=== PATIENT | male | born 1940 | race African-American/Black ===

== ENCOUNTER 2018-03-26 09:30 | Observation (INO) ==
[2018-03-26] MEDS ORDERED: methylPREDNISolone SOD SUC 125 MG/2 ML VIAL IV STA (09:47)
[2018-03-26] MEDS ORDERED: ONDANSETRON 4 MG/2 ML VIAL IV STA (09:47)
[2018-03-26] MEDS ORDERED: ALBUTEROL/IPRATROPIUM 3 ML NEB RESP TX STA (09:47)
[2018-03-26] MEDS ORDERED: METOCLOPRAMIDE 10 MG/2 ML VIAL IV STA (09:47)
[2018-03-26] MEDS ORDERED: AZITHROMYCIN INJ 500 MG in SODIUM CHLORIDE 0.9% 250 ML IV STA (09:47)
[2018-03-26 10:19] LABS: Basophils % 0.2 % (0.0-0.8); Hematocrit 44.3 VOL% (42.0-52.0); Hemoglobin 15.1 GM/DL (14.0-18.0); Immature Granulocytes % 0.6 %; Immature Granulocytes Absolute 0.06 #; Lymphocytes # 0.3 10*3/uL (1.4-4.0); Lymphocytes % 3.1 % (21.2-54.2); Mean Corpuscular HGB Conc 34.1 GM/DL (32-36); Mean Corpuscular Hemoglobin 30 PG (27-34); Mean Corpuscular Volume 87.4 FL (87-102); Mean Platelet Volume 10.6 FL (9.6-12.0); Monocytes # 0.7 10*3/uL (0.11-0.8); Monocytes % 7.2 % (1.7-12.7); Neutrophils # 8.9 10*3/uL (1.4-7.4); Neutrophils % 88.9 % (38.7-73.9); Platelet Count 172 T/CUMM (130-400); Red Blood Count 5.07 MC/CUMM (3.8-5.5); Red Cell Distribution Width 12.8 % (9.3-17.3)
[2018-03-26 10:32] LABS: INR 1.1; Partial Thromboplastin Time 26.6 SECS (0-40)
[2018-03-26 10:42] LABS: Lymphocytes 4 % (20-55); Metamyelocytes 1 %; Microcytosis Slight; Platelet Estimate Adequate; Segmented Neutrophils 88 % (50-85); Total Cells Counted 100
[2018-03-26 10:45] LABS: Alanine Aminotransferase 26 U/L (16-61); Albumin 3.7 G/DL (3.4-5.0); Alkaline Phosphatase 95 U/L (45-117); Aspartate Amino Transferase 22 U/L (0-37); Blood Urea Nitrogen 13 MG/DL (7-18); Calcium 8.8 MG/DL (8.5-10.1); Glucose 278 MG/DL (74-106); Osmolality,Calculated 275.4 MOS/KG (273-304); Potassium 3.5 MMOL/L (3.5-5.1); Sodium 133 MMOL/L (136-145); Total Protein 7.6 G/DL (6.4-8.3)
[2018-03-26] MEDS ORDERED: ASPIRIN 325 MG TABLET PO STA (10:50)
[2018-03-26] MEDS ORDERED: NITROGLYCERIN 2% OINT 1 INCH/GM PACK TOP STA (10:50)
[2018-03-26] MEDS ORDERED: METOPROLOL TARTRATE 50 MG TABLET PO STA (10:55)
[2018-03-26] MEDS ORDERED: ONDANSETRON 4 MG/2 ML VIAL IV PRN (11:00)
[2018-03-26] MEDS ORDERED: ACETAMINOPHEN 325 MG TABLET PO PRN (11:00)
[2018-03-26] MEDS ORDERED: PROMETHAZINE 25 MG/1 ML VIAL IM PRN (11:00)
[2018-03-26 11:12] LABS: Apearance,Urine CLEAR (Clear); Bilirubin,Urine Negative (Negative); Blood, Urine Small mg/dL (Negative); Glucose,Urine (UA) >=500 mg/dL (Negative); Ketones,Urine 20 mg/dL (Negative); Mucus,Urine Occasional /LPF (Occasional); Nitrite,Urine Negative (Negative); Protein,Urine 30 MG/DL; RBC,Urine 1 /HPF (0-4); Squamous Epithelial Cell,Urine Occasional /HPF (0-10); Urine Color Yellow (Yellow); Urine Specific Gravity 1.025 (1.001-1.035); WBC,Urine <1 /HPF (0-6)
[2018-03-26] MEDS ORDERED: GLUCAGON 1 MG VIAL IM PRN (11:19)
[2018-03-26] MEDS ORDERED: DEXTROSE 50% 25 GM/50 ML VIAL IV PRN (11:19)
[2018-03-26] MEDS: PANTOPRAZOLE 40 MG TABLET PO SCH (11:23)
[2018-03-26] MEDS: ENOXAPARIN 40 MG/0.4 ML SYRINGE SUBCUT SCH (11:24)
[2018-03-26] MEDS ORDERED: LEVOFLOXACIN INJ 750 MG in PREMIX 1 EACH IV SCH (11:30)
[2018-03-26 11:44] LABS: Thyroid Stimulating Hormone 0.283 uIU/ml (0.358-3.74)
[2018-03-26 11:46] LABS: Barbiturates Screen,Urine Negative (Negative); Benzodiazepines Screen,Urine Negative (Negative); Cannabinoid Screen,Urine Negative (Negative); Opiate Screen,Urine Positive (Negative); Phencyclidine Screen,Urine Negative (Negative)
[2018-03-26] MEDS: ALBUTEROL/IPRATROPIUM 3 ML NEB RESP TX SCH ×2 (12:28→19:30)
[2018-03-26] MEDS: BUDESONIDE 0.5 MG/2 ML NEB RESP TX SCH ×2 (12:28→19:30)
[2018-03-26] MEDS: ARFORMOTEROL 15 MCG/2 ML NEB RESP TX SCH ×2 (12:38→19:30)
[2018-03-26] MEDS: INSULIN GLARGINE 100 UNIT/ML SUBCUT SCH (13:52)
[2018-03-26] MEDS: MONTELUKAST 10 MG TABLET PO SCH ×2 (13:53→21:06)
[2018-03-26] MEDS: SODIUM CHLORIDE 0.9% 1,000 ML IV SCH (13:54)
[2018-03-26] MEDS: INSULIN LISPRO 100 UNIT/ML SUBCUT SCH ×2 (13:58→16:26)
[2018-03-26] MEDS: methylPREDNISolone SOD SUC 125 MG/2 ML VIAL IV SCH (17:37)
[2018-03-27] MEDS: ALBUTEROL/IPRATROPIUM 3 ML NEB RESP TX SCH ×2 (00:47→07:00)
[2018-03-27] MEDS: SODIUM CHLORIDE 0.9% 1,000 ML IV SCH (01:10)
[2018-03-27] MEDS: INSULIN LISPRO 100 UNIT/ML SUBCUT SCH ×3 (01:11→12:17)
[2018-03-27] MEDS: methylPREDNISolone SOD SUC 125 MG/2 ML VIAL IV SCH ×2 (01:57→09:34)
[2018-03-27 05:23] LABS: Basophils % 0.1 % (0.0-0.8); Hematocrit 39.9 VOL% (42.0-52.0); Hemoglobin 13.5 GM/DL (14.0-18.0); Immature Granulocytes % 0.5 %; Immature Granulocytes Absolute 0.08 #; Lymphocytes # 0.6 10*3/uL (1.4-4.0); Mean Corpuscular HGB Conc 33.8 GM/DL (32-36); Mean Corpuscular Hemoglobin 30 PG (27-34); Mean Corpuscular Volume 87.1 FL (87-102); Mean Platelet Volume 11.6 FL (9.6-12.0); Monocytes # 0.5 10*3/uL (0.11-0.8); Monocytes % 3.4 % (1.7-12.7); Neutrophils # 13.6 10*3/uL (1.4-7.4); Platelet Count 168 T/CUMM (130-400); Red Blood Count 4.58 MC/CUMM (3.8-5.5); Red Cell Distribution Width 12.8 % (9.3-17.3); White Blood Count 14.9 T/CUMM (4-12)
[2018-03-27 05:46] LABS: Albumin 2.8 G/DL (3.4-5.0); Calcium 7.7 MG/DL (8.5-10.1); Lymphocytes 2 % (20-55); Osmolality,Calculated 283.1 MOS/KG (273-304); Potassium 3.2 MMOL/L (3.5-5.1); Risk Ratio 2.21; Segmented Neutrophils 96 % (50-85); Total Cells Counted 100; Total Protein 6.3 G/DL (6.4-8.3); VLDL CHOLESTEROL 8.2 MG/DL
[2018-03-27 05:47] LABS: Hypochromasia Slight; Platelet Estimate Adequate
[2018-03-27] MEDS: ARFORMOTEROL 15 MCG/2 ML NEB RESP TX SCH (07:00)
[2018-03-27] MEDS: BUDESONIDE 0.5 MG/2 ML NEB RESP TX SCH (07:00)
[2018-03-27] MEDS ORDERED: ASPIRIN EC 81 MG TABLET PO SCH (09:00)
[2018-03-27] MEDS ORDERED: POTASSIUM CHLORIDE 20 MEQ TABLET PO SCH (09:00)
[2018-03-27] MEDS ORDERED: PANTOPRAZOLE 40 MG TABLET PO SCH (09:00)
[2018-03-27] MEDS ORDERED: TAMSULOSIN 0.4 MG CAPSULE PO SCH (09:00)
[2018-03-27] MEDS ORDERED: PIOGLITAZONE 15 MG TABLET PO SCH (09:00)
[2018-03-27] MEDS ORDERED: LOSARTAN/HCTZ 50-12.5 MG TABLET PO SCH (09:00)
[2018-03-27] MEDS: INSULIN GLARGINE 100 UNIT/ML SUBCUT SCH (09:33)
[2018-03-27] MEDS: ENOXAPARIN 40 MG/0.4 ML SYRINGE SUBCUT SCH ×2 (09:33→11:37)
[2018-03-27] MEDS: PANTOPRAZOLE 40 MG TABLET PO SCH (09:34)
[2018-03-27] MEDS: MONTELUKAST 10 MG TABLET PO SCH (09:34)
[2018-03-27] MEDS: POTASSIUM CHLORIDE 20 MEQ TABLET PO SCH ×2 (09:35→12:17)
[2018-03-27] MEDS ORDERED: GLIMEPIRIDE 2 MG TABLET PO SCH (10:30)
[2018-03-27 13:36] VITALS: BP 142/73
== END 2018-03-27 14:13 | disposition home health service (06) ==
LOC: N.EDINP 09:30 → N.ED 09:30 → SUATTDRO 11:00 → N.5E 12:14
PROVIDERS: ADMIT Phlebology; ATTEND Internal Medicine